=== PATIENT | female | born 1995 | race Caucasian/White ===

== ENCOUNTER → 2019-08-28 | Outpatient (CLI) | payer OTHER ==
--- NOTE | 2019-08-28 13:49 | REP ---
Obstetric sonography: History: Supervision of 42 weeks 3 days. growth study of well-being. Proteinuria and obesity. Findings: Scanning through the gravid uterus demonstrates a viable single intrauterine gestation in a transverse lie, head to the maternal left. motion is observed and heart rate is recorded at 125 beats per minute. An anterior grade 1 placenta is seen without evidence of previa. Amniotic fluid is subjectively normal. Closed cervical length is measured transabdominally at 5.0 cm. No extrauterine abnormalities observed. Exam quality is inhibited to some degree by maternal body habitus and position. No anomaly is seen. The following anatomic structures are identified today and felt to be unremarkable: cranium, choroid plexus, cavum, cerebellum and posterior fossa, diaphragm, left-sided stomach, abdominal wall cord insertion, three-vessel cord, kidneys, bladder. Biometry chart: BPD 7.7 cm = 31 weeks 0 days Head circumference 28.5 cm = 31 weeks 2 days Abdominal circumference 27.6 cm = 31 weeks 4 days Femur length 6.2 cm = 32 weeks 1 day Humeral length 5.5 cm = 32 weeks 0 days HC/AC ratio normal 1.03. Cephalic index normal 0.75. Estimated weight 1818 grams, 4 pounds 0 ounces, 30th percentile for 32 weeks 3 days. CARLOS normal 12.7 cm. S/D ratio normal 2.95. Impression: Viable single intrauterine gestation at 31 weeks 4 days by today's composite sonographic criteria. Expected gestational age estimate based on prior sonography is 32 weeks 3 days. ISA by prior sonography October 20, 2019. Appropriate interval growth. Electronically Signed by Kingsley Corey MD 08/28/2019 02:35 P
== END ==
LOC: M RAD 12:19
PROVIDERS: ATTEND Registered Nurse Maternal Newborn
DX: R80.9 Proteinuria, unspecified (principal)

== ENCOUNTER 2019-09-06 12:04 | Inpatient (IN) | payer OTHER ==
[2019-09-06] VITALS (22 sets, daily range): BP systolic 122–179; BP diastolic 60–102
[~2019-09-06] VITALS: Ht 165.1 cm; Wt 105.4 kg
[2019-09-06] MEDS ORDERED: PEPC40TA12 PO (12:37)
[2019-09-06] MEDS ORDERED: PREN1CHW6 PO (12:37)
[2019-09-06] MEDS ORDERED: MAGN1CAP PO (12:37)
[2019-09-06] MEDS ORDERED: MAPA500T2 PO (12:37)
[2019-09-06] MEDS ORDERED: CVS500CA5 PO (12:37)
[2019-09-06] MEDS ORDERED: OMEG1CAP16 PO (12:37)
[2019-09-06 13:43] LABS: CREATININE,RANDOM URINE 24.4 MG/DL; TOTAL PROTEIN,RANDOM URINE 25.2 MG/DL (0.0-12.0)
[2019-09-06 13:51] LABS: HEMATOCRIT 37.2 % (36.0-47.0); HEMOGLOBIN 12.5 g/dl (12.0-15.5); MEAN CORPUSCULAR HEMOGLOBIN 31.4 pg (27.0-33.0); MEAN CORPUSCULAR HGB CONC 33.6 g/dl (32.0-36.5); MEAN CORPUSCULAR VOLUME 93.5 fl (80.0-96.0); PLATELET COUNT, AUTOMATED 200 10^3/uL (150-450); RED BLOOD COUNT 3.98 10^6/uL (4.00-5.40); WHITE BLOOD COUNT 13.9 10^3/uL (4.0-10.0)
[2019-09-06] MEDS ORDERED: FIORICET TAB PO ONE (14:00)
[2019-09-06 14:08] LABS: ALT/SGPT 18 U/L (12-78); BILIRUBIN,TOTAL 0.3 MG/DL (0.2-1.0); CREATININE FOR GFR 0.79 MG/DL (0.55-1.30); GLOMERULAR FILTRATION RATE > 60.0 (>60); LDH LACTATE DEHYDROGENASE 208 U/L (84-246); URIC ACID 6.3 MG/DL (2.6-6.0)
[2019-09-06] MEDS ORDERED: BETAMETHASONE SOLUSPAN 6MG/ML INJ 5ML (J0702) IM ONE (15:30)
[2019-09-06] MEDS ORDERED: LABETALOL HCL 100 MG/20 ML VIAL IV ONE (15:30)
[2019-09-06] MEDS ORDERED: diphenhydrAMINE 25 MG CAP PO ONE (15:30)
[2019-09-06] MEDS ORDERED: MAGNESIUM *L&D* 4 GM/100 ML BAG (40MG/ML) (J3475) IV ONE (15:30)
[2019-09-06] MEDS ORDERED: LABETALOL HCL 100 MG/20 ML VIAL IV SCH (15:41)
[2019-09-06] MEDS: LR 1,000 ML IV SCH (15:51)
[2019-09-06] MEDS: MAG Sulf (OBGYN) 20GM/500ML 20,000 MG in IV 1 EA IV SCH (16:09)
[2019-09-06] MEDS ORDERED: PENICILLIN G POTASSIUM IV 5 MU in D5W MINI-BAG PLUS 100 ML IV ONE (16:45)
[2019-09-06] MEDS ORDERED: hydrOXYzine 10 MG TAB PO ONE (21:15)
[2019-09-06] MEDS ORDERED: ACETAMINOPHEN 500 MG TAB PO ONE (21:15)
[2019-09-06] MEDS: FAMOTIDINE 20 MG TAB PO SCH (21:19)
[2019-09-06] MEDS: PENICILLIN G POTASSIUM IV 2.5 MU in IV 1 EA IV SCH (21:21)
[2019-09-07] VITALS (55 sets, daily range): BP systolic 113–172; BP diastolic 61–102
[2019-09-07] MEDS: PENICILLIN G POTASSIUM IV 2.5 MU in IV 1 EA IV SCH ×4 (01:35→13:36)
[2019-09-07] MEDS: LR 1,000 ML IV SCH ×2 (04:30→16:17)
--- NOTE | 2019-09-07 06:25 | HPE ---
DATE OF ADMISSION: 09/06/2019 This lady is a 24-year-old, 6, para 2, abortio 3, last menstrual period (LMP) 01/13/2019, expected date of confinement (EDC) 10/20/2019 with a history of being 33 and 5 weeks of gestation who was in the office today and had an elevated blood pressure of 139/87 and 139/85, plus a migraine which she has had for 2 days and she was diagnosis as preeclampsia. PAST HISTORY: In May 2015, at 37 and 6 weeks, had a section after induction of labor which failed for preeclampsia with nonreassuring heart tones at 4 cm. The baby was 7 pounds 3 ounces. In October 2016, she had a repeat section at 40 weeks, scheduled, 7 pounds 15 ounces. She did not want to do induction of labor for preeclampsia. In 2018, had an ectopic . No details on the side or the operative procedure. In 2013, she had a spontaneous AB of twins with dilation and curettage. Her risk factors is that she had a history of preeclampsia x2. She has had two sections. She has had a right ectopic . Her body mass index (BMI) is 34.6 and she suffers from migraines. She had an ultrasound on 08/30/2019 which showed a viable intrauterine (IUP), vertex presenting, at 30 and weeks 1 day, with estimated weight at the 30th percentile with an CARLOS of normal and the cervix was 5.0. Presently, her hemoglobin is 12.5, hematocrit 37.2 and platelets are 200. Her uric acid was 6.3. Her ALT, AST and LDH were normal. Her protein creatinine ratio is 1.04. Her 24-hour urine that she did at [place] was 460. LAB WORK: O+. HIV negative. Hepatitis negative. RPR negative. Rubella immune. Varicella immune. Pap normal. GBS positive for urine. Gonorrhea and chlamydia negative. 1-hour glucose was 110. Her 28-week glucose was 112. Pap normal. EXAMINATION: Today, no acute distress. No eye grounds issues. Her migraine which she has had before requires some Fioricet for which we have given her and subsequently the migraines are resolving. She has no visual disturbances. No right upper quadrant pain. Reflexes are normal. No pedal edema. On examination presently, her symphysis fundus height is 32. She is in no distress. No contractions. Category one strip. No vaginal bleeding or discharge. Her reflexes as mentioned were normal. Eyegrounds were normal. Her blood pressure while in the hospital here range from 142/8 to 150/88 to 150/92. She had one episode of a severe range blood pressure of 179/102 without any consequence. Our plan of care is to IV keep vein open, magnesium sulfate for 24-hour prophylaxis, betamethasone which she had an initial dose of 12.5 mg and 12 hours later had some swelling in her face and flushing. We do not attribute it as a true allergy, however, we have given her Benadryl followed half an hour later by her betamethasone 12.5. We are prophylactically treating her for GBS with penicillin. We have her on a hypertensive protocol. If her blood pressure reaches severe range 160/100, we will initiate the IV antihypertensive protocol. We have spoken with neonatology who is aware that within 24 hours this lady will be delivered. The patient expressed understanding. All questions were answered. 1-hour discussion.
[2019-09-07 07:15] LABS: HEMATOCRIT 38.8 % (36.0-47.0); HEMOGLOBIN 13.2 g/dl (12.0-15.5); MEAN CORPUSCULAR HEMOGLOBIN 31.2 pg (27.0-33.0); MEAN CORPUSCULAR VOLUME 91.7 fl (80.0-96.0); PLATELET COUNT, AUTOMATED 259 10^3/uL (150-450); RED BLOOD COUNT 4.23 10^6/uL (4.00-5.40)
[2019-09-07 07:56] LABS: ALT/SGPT 16 U/L (12-78); BILIRUBIN,TOTAL 0.3 MG/DL (0.2-1.0); CREATININE FOR GFR 0.92 MG/DL (0.55-1.30); GLOMERULAR FILTRATION RATE > 60.0 (>60); LDH LACTATE DEHYDROGENASE 278 U/L (84-246); MAGNESIUM LEVEL 4.8 MG/DL (1.8-2.4)
[2019-09-07] MEDS: FAMOTIDINE 20 MG TAB PO SCH ×2 (09:38→21:37)
[2019-09-07] MEDS ORDERED: ACETAMINOPHEN 500 MG TAB PO ONE (10:00)
[2019-09-07] MEDS: MAG Sulf (OBGYN) 20GM/500ML 20,000 MG in IV 1 EA IV SCH (10:50)
--- NOTE | 2019-09-07 10:55 | IPNPDOC ---
Obstetrical Progress Note Date of Service Sep 07, 2019 Subjective Received report from Dr. Bhatti and assumed co-management of 24yo at 33+6wks who was admitted yesterday for Pre-Eclampsia with severe features. Her hospital admission course has included completion of 2nd betamethasone, magnesium sulfate, Fioricet and tylenol for her headache, Penicillin prophylaxis for GBS+ status; she has lopez catheter and SCDs in place. Whitney reports +FM, denies VB/CTX/LOF. She reports a 5/0 MCLEAN at time of her assessment. Her last tylenol was last night and she is amenable on trying another 1gm of tylenol at this time. She denies RUQ pain and visual disturbances. She is currently alone in her room because her spouse is at home with her two other small children at this time. Objective O: BP currently normotensive. Two severe range BPs noted at times of assessment and stimulus at 0726 and 1004; mild range at 0946. Afebrile, pulse WNL Lungs clear to auscultation Normal reflexes Mild pedal edema bilaterally FHR 115, minimal variability, some periods of moderate variability, positive accels, no decels noted CTX: none Labs: Platelets 259, mag level 4.8, LDH 278, uric acid 6.0 PC ratio 1.04 Urine output: 150-200ml/hr Vital Signs Date Time Temp Pulse Resp B/P (MAP) Pulse Ox O2 Delivery O2 Flow Rate FiO2 09/07/19 10:17 94 18 126/79 (95) 09/07/19 10:04 98.6 09/07/19 07:26 99 Room Air Item Value Date Time Creatinine 0.92 MG/DL 09/07/19 0631 Assessment Heart Rate Tracing: Category II Tocometer Contractions: No Assessment and Plan Status: Reassuring Group B Streptococcus: Positive Anticipate: Section Additional Comments A: 24yo at 33+6 weeks admitted for Pre-Eclampsia with severe features, currently on magnesium sulfate. Reassuring status, Category II FHT d/t minimal variability. VSS, few severe range BPs, otherwise normotensive. Lab stable at this time. Pt stable at this time. P: Continuous EFM x2 Close monitoring for s/sx of Pre-E Tylenol for MCLEAN Report provided to Dr. Farnsworth - current plan to conduct repeat C/S at 1630 today Will notify neonatolgy and anesthesia and update with plan for delivery Continue to monitor HIPOLITO JOHANSEN CNM Sep 07, 2019 10:46
--- NOTE | 2019-09-07 10:58 | IPN ---
DATE: 09/07/2019 This lady is a 24-year-old, 6, para 2, who is presently at 33 and 6 weeks of gestation. Was admitted through the office because of elevated blood pressures and also significant migraine, which she has had in the past. When she came in, she was worked up for pre-eclampsia and she was found to have a uric acid elevation of 6.3. Her protein-creatinine ratio was 1.04. She did have a 24-hour urine at [place], which just came back at 465. Her blood pressures earlier were anywhere in the low range of 135/85, 122/65, to 159/97 to 150/92. She had one severe range blood pressure on admission of 179/102; however, it was upsetting to her to be here at the present time. She overnighted with prophylactic penicillin because group B streptococcus (GBS) status is positive, magnesium sulfate for neuro prophylaxis, and betamethasone to make her complete. She did have apparently a reaction to betamethasone in her first dose in the office. However, here, we gave her Benadryl and then a half an hour later, she had her betamethasone and symptomatically she was well. We gave her some medication for sleep for her gastroesophageal reflux disease (GERD) and for her migraine. She just has a minimal headache this morning. We repeated her blood work this morning, and her hemoglobin this morning is 13.2, hematocrit 38.8, and platelets are 259. Her chemistry is still pending. Our plan of care was to make her neuro complete, which will be at 1600 hours this afternoon. The plan of management was that she would have a section as she has had two previous sections. One was for pre-eclampsia, and the second one was an elective repeat because she did not want to have induction of labor and she had pre-eclampsia symptoms in her second . Presently, she is afebrile. She is doing well. She has urinary output 150 mL/hour. Her immediate blood pressure right now is 128/80, respirations are 18, pulse 78, and her temperature is 99.0. Patient is understanding of the plan of care. We will discuss this with the oncoming physician. In summary, we have a 33 and 6 week gestation, previous section times two, previous history of pre-eclampsia times two, presently with midrange blood pressures treated. She did not have any antihypertensives, although she is on the antihypertensive protocol, and we will move forward regarding management of care after she is neuro complete. We discussed this with neonatology, who is on board.
[2019-09-07] MEDS ORDERED: ceFAZolin SOD 2 GM in IV 1 EA IV ONE (14:45)
[2019-09-07] MEDS ORDERED: BICITRA 30ML SOLN UDC PO ONE (14:45)
--- NOTE | 2019-09-07 16:50 | IPNPDOC ---
Text Note Date of Service The patient was seen on 09/07/19. NOTE Consent for /BTL Whitney is a 24yo with SIUP at 33w6d who was admitted yesterday for pre- eclampsia with severe features based on bp's, proteinuria and creatinine. She had a headache but resolved with medication. She was started on IV Mg and received 2nd dose of betamethasone yesterday at 1630. BPs have been mostly normotensive to mild range on Mg, rare and unrepeated severe range. No vision changes. No RUQ pain. Vitals: normotensive, afebrile General: WDWN, resting comfortably Abdomen: soft, gravid, NTTP Cat I FHRT with bl 120, +accels, -decels, mod eliu [place]: no ctx Labs significant for creat 0.92, recent 24hr UP >400mg, normal LFTs and plt 259 Assessment: Whitney is a 24yo with SIUP at 33w6d with pre-eclampsia with severe features based on bp's, proteinuria and creatinine, now 24hr steroid complete. Hx of 2 prior sections and satisfied parity. Reassuring status. Vitals and labs as noted above. Plan: -Consent form signed for RLTCS with BTL. All r/b/a discussed and consent forms signed by me and patient for surgery as well as blood transfusion -Anceph 2g IV pre-operatively -Bicitra -SCDs -Nursing team, anesthesia and NICU Dr all aware of plan -Will proceed to OR when team ready MD RICHY Castillo,Mac, I+O VSMac I+O Laboratory Tests 09/07/19 06:31 Vital Signs Date Time Temp Pulse Resp B/P (MAP) Pulse Ox O2 Delivery O2 Flow Rate FiO2 09/07/19 15:16 86 18 124/72 (89) 09/07/19 13:01 98.9 09/07/19 07:26 99 Room Air I&O- Last 24 Hours up to 6 AM 09/07/19 05:59 Intake Total 1375 ml Output Total 3400 ml Balance -5 ml Tavia Farnsworth MD Sep 07, 2019 16:50
[2019-09-07] MEDS ORDERED: KETOROLAC 60 MG/2 ML VIAL (J1885) As Ordered ONE (17:11)
[2019-09-07] MEDS ORDERED: MORPHINE PRES-FREE INJ 10 MG/10 ML VIAL (J2274) As Ordered ONE (17:11)
[2019-09-07] MEDS ORDERED: ONDANSETRON 4MG/2ML VIAL (J2405) As Ordered ONE (17:11)
[2019-09-07] MEDS ORDERED: OXYTOCIN INJ 10 UNITS/ML VIAL (J2590) As Ordered ONE (17:11)
[2019-09-07] MEDS ORDERED: NALOXONE INJ 0.4 MG/1 ML VIAL (J2310) IV PRN ×2 (17:27)
[2019-09-07] MEDS ORDERED: NALBUPHINE HCL 10 MG/ML AMP (J2300) IV PRN (17:27)
[2019-09-07] MEDS ORDERED: METOCLOPRAMIDE INJ 10MG/2ML VIAL (J2765) IV PRN ×2 (17:27→19:00)
[2019-09-07] MEDS ORDERED: diphenhydrAMINE INJ 50MG/ML VIAL (J1200) IV PRN (17:27)
[2019-09-07] MEDS ORDERED: ONDANSETRON 4MG/2ML VIAL (J2405) IV PRN ×2 (17:27→19:00)
[2019-09-07] MEDS ORDERED: miSOPROStol 200 MCG TAB (S0191) As Ordered ONE (17:57)
[2019-09-07 18:07] LABS: CORD GAS ABE A -7.5; CORD GAS HCO3 A 17.1 MEQ/L; CORD GAS O2 SAT A 23.5 %; CORD GAS PCO2 A 32.8 mmHg; CORD GAS PH A 7.335 UNITS; CORD GAS PO2 A 14.7 mmHg; CORD GAS SBC A 16.8 MEQ/L; CORD GAS TCO2 A 18.1 MEQ/L
[2019-09-07 18:08] LABS: CORD GAS ABE V -4.8; CORD GAS O2 SAT V 29.2 %; CORD GAS PCO2 V 36.5 mmHg; CORD GAS PH V 7.356 UNITS; CORD GAS PO2 V 15.7 mmHg; CORD GAS SBC V 18.9 MEQ/L; CORD GAS TCO2 V 21.1 MEQ/L
[2019-09-07] MEDS ORDERED: dexameTHASONE 4 MG/ML 1ML VIAL (J1100) As Ordered ONE (18:13)
[2019-09-07] MEDS ORDERED: miSOPROStol 200 MCG TAB (S0191) PR ONE (18:45)
[2019-09-07] MEDS ORDERED: PERCOCET 5MG/325MG TAB PO PRN ×3 (18:45→19:00)
[2019-09-07] MEDS ORDERED: MEASLES,MUMPS,RUBELLA VACCINE INJ (MMR-II) (90707) SC SCH (18:45)
[2019-09-07] MEDS ORDERED: RHOGAM 300 MCG (1500 IU) INJ (J2790) IM SCH (18:45)
--- NOTE | 2019-09-07 18:49 | DNPDOC ---
[facility] Delivery Note Delivery Note DATE OF DELIVERY: 09/07/2019 PREDELIVERY DIAGNOSIS: 33w6d having pre-eclampsia with severe features, history of 2 prior sections, satisfied parity POST DELIVERY DIAGNOSIS: same as above, delivered. PROCEDURE: RLTCS with bilateral tubal ligation WELDER TACK: Dr. Tavia Farnsworth MD ANESTHESIA: spinal ESTIMATED BLOOD LOSS: 500 mL. FINDINGS: 4 pound 1 ounce female , Score 8/9 DELIVERY SUMMARY: Whitney is a 24yo [id number] s/p uncomplicated RLTCS with BTL on 09/07/2019 at 1752 indicated for pre-eclampsia with severe features (based on bp's, pr oteinuria and elevated creatinine), having history of 2 prior sections and satisfied parity. MD Daja Castillo Katrina D MD Sep 07, 2019 18:49
[2019-09-07] MEDS ORDERED: LR 1,000 ML IV SCH (19:00)
[2019-09-07] MEDS ORDERED: fentaNYL 100 MCG/2 ML INJECTION (J3010) IV PRN (19:00)
[2019-09-07] MEDS ORDERED: OXYTOCIN DRIP 30 UNITS in IV 1 EA IV SCH (19:00)
[2019-09-07] MEDS ORDERED: MEPERIDINE INJ 25 MG/ML VIAL (J2175) IV PRN (19:00)
[2019-09-07] MEDS ORDERED: GASTROGRAFIN SOLUTION 30ML PO SCH (19:40)
[2019-09-07] MEDS ORDERED: OXYTOCIN 30 UNITS IN 0.9% NaCl 500ML IV BAG (J2590) As Ordered ONE (19:56)
[2019-09-07] MEDS ORDERED: fentaNYL 100 MCG/2 ML INJECTION (J3010) As Ordered ONE (20:07)
[2019-09-07] MEDS: DOCUSATE SODIUM 100 MG CAP PO SCH (21:37)
[2019-09-08] VITALS (20 sets, daily range): BP systolic 114–158; BP diastolic 70–96
[2019-09-08] MEDS: KETOROLAC 30 MG/ML VIAL (J1885) IV SCH ×3 (00:01→11:55)
[2019-09-08] MEDS: LR 1,000 ML IV SCH (00:03)
[2019-09-08] MEDS: MAG Sulf (OBGYN) 20GM/500ML 20,000 MG in IV 1 EA IV SCH (05:00)
[2019-09-08 06:33] LABS: HEMATOCRIT 32.4 % (36.0-47.0); MEAN CORPUSCULAR HEMOGLOBIN 31.2 pg (27.0-33.0); MEAN CORPUSCULAR HGB CONC 33.6 g/dl (32.0-36.5); MEAN CORPUSCULAR VOLUME 92.8 fl (80.0-96.0); PLATELET COUNT, AUTOMATED 222 10^3/uL (150-450); RED BLOOD COUNT 3.49 10^6/uL (4.00-5.40); WHITE BLOOD COUNT 18.3 10^3/uL (4.0-10.0)
[2019-09-08 06:43] LABS: HEMOGLOBIN 10.9 g/dl (12.0-15.5)
[2019-09-08 06:58] LABS: ALBUMIN 2.4 GM/DL (3.2-5.2); ALT/SGPT 14 U/L (12-78); BILIRUBIN,TOTAL 0.2 MG/DL (0.2-1.0); BLOOD UREA NITROGEN 14 MG/DL (7-18); CALCIUM LEVEL 6.7 MG/DL (8.5-10.1); CARBON DIOXIDE LEVEL 22 MEQ/L (21-32); CHLORIDE LEVEL 107 MEQ/L (98-107); GLOMERULAR FILTRATION RATE > 60.0 (>60); GLUCOSE, FASTING 111 MG/DL (70-100); POTASSIUM SERUM 4.5 MEQ/L (3.5-5.1); SODIUM LEVEL 137 MEQ/L (136-145); TOTAL PROTEIN 5.7 GM/DL (6.4-8.2)
[2019-09-08] MEDS: PRENATAL VITAMINS CHEWABLE TABLET PO SCH (08:05)
[2019-09-08] MEDS: DOCUSATE SODIUM 100 MG CAP PO SCH ×2 (08:05→19:22)
[2019-09-08] MEDS: FAMOTIDINE 20 MG TAB PO SCH ×2 (08:06→19:23)
--- NOTE | 2019-09-08 09:38 | IPNPDOC ---
Progress Note Date of Service: Sep 08, 2019 Day#: 1 Progress Note PPD 1/POD 1 SUBJECT: Whitney is a 24yo [id number] s/p uncomplicated RLTCS with BTL on 09/07/2019 at 1752 indicated for pre-eclampsia with severe features (based on bp's, proteinuria and elevated creatinine), having history of 2 prior sections and satisfied parity, doing well /post-op day # 1. She has no t yet ambulated since on MgSO4 for 24hr post-op, has lopez catheter in place and tolerating regular diet with no nausea/emesis. Breast pumping for baby in NICU- was able to see baby once so far. Reports lochia is minimal. No f/c/CP/SOB/MCLEAN/vision changes/RUQ pain. OBJECTIVE: VITAL SIGNS: BP's normotensive to slightly mild range, afebrile. Alert and oriented times three. Abdomen: Fundus firm at U-1. Soft, appropriately tender to palpation. Abdominal binder in place. Optifoam dressing covering pfannensteil incision with no erythema/induration noted Extremities: no pain with palpation of calves, SCDs in place UOP >100ml/hr Labs: pre-op H/H 13.2/38.8 post-op H/H 10.9/32.4 creatinine 0.9, AST/ALT wnl ASSESSMENT: Whitney is a 24yo [id number] s/p uncomplicated RLTCS with BTL on 09/07/2019 at 1752 indicated for pre-eclampsia with severe features (based on bp's, proteinuria and elevated creatinine), having history of 2 prior sections and satisfied parity, doing well /post-op day # 1. No s/sx of worsening pre-E. Vitals within normal limits (normal to mild range bp's), afeb rile, hemodynamically stable with no evidence of infection. PLAN: 1. Routine /post-op care on L&D until 24hr of MgSO4 completed post-op, then discontinue MgSO4 and remove lopez catheter, pt can go to [place]. Ok to shower tonight. 2. Toradol and percocet x24hr post-op then Motrin and percocet for pain. 3. Encourage breast pumping and visitation of baby in NICU (in wheelchair), bedrest while on MgSO4. Encourage use of IS. 4. Regular diet 5. CBC and CMP tomorrow morning Dr. Tavia Farnsworth MD VS, I&O, 24H, Fishbone Vital Signs/I&O Vital Signs Date Time Temp Pulse Resp B/P (MAP) Pulse Ox O2 Delivery O2 Flow Rate FiO2 09/08/19 08:59 74 18 136/92 (107) 09/08/19 07:12 98.6 09/08/19 06:02 98 Room Air I&O- Last 24 Hours up to 6 AM 09/08/19 06:00 Intake Total 3523.4 ml Output Total 5520 ml Balance -1996.6 ml Laboratory Data 24H LABS Laboratory Tests 2 09/07/19 17:59: Cord Arterial Blood pH 7.335, Cord Arterial Blood PCO2 32.8, Cord Arterial Blood PO2 14.7, Cord Arterial Blood HCO3 17.1, Cord Arterial Blood Total CO2 18.1, Cord Arterial Blood Base Excess -7.5, Cord Arterial Base Excess (Standard 16.8, Cord Arterial Bld Oxygen Saturation 23.5, Cord Venous Blood pH 7.356, Cord Venous Blood PCO2 36.5, Cord Venous Blood PO2 15.7, Cord Venous Blood HCO3 20.0, Cord Venous Blood Total CO2 21.1, Cord Venous Base Excess (Actual) -4.8, Cord Venous Base Excess (Standard) 18.9, Cord Venous Blood Oxygen Saturation 29.2 09/08/19 06:21: Nucleated Red Blood Cells % (auto) 0.0, Anion Gap 8, Glomerular Filtration Rate > 60.0, Calcium Level 6.7L, Total Bilirubin 0.2, Aspartate Amino Transf (AST/SGOT) 18, Alanine Aminotransferase (ALT/SGPT) 14, Alkaline Phosphatase 83, Total Protein 5.7L, Albumin 2.4L, Albumin/Globulin Ratio 0.73L CBC/BMP Laboratory Tests 09/08/19 06:21 Tavia Farnsworth MD Sep 08, 2019 09:38
[2019-09-08] MEDS: IBUPROFEN 800 MG TAB PO SCH (19:23)
[2019-09-09 02:00] VITALS: BP 142/80
[2019-09-09] MEDS: IBUPROFEN 800 MG TAB PO SCH ×2 (04:52→12:11)
[2019-09-09 05:54] VITALS: BP 139/74
[2019-09-09 06:58] LABS: HEMATOCRIT 30.9 % (36.0-47.0); HEMOGLOBIN 10.1 g/dl (12.0-15.5); MEAN CORPUSCULAR HEMOGLOBIN 31.3 pg (27.0-33.0); MEAN CORPUSCULAR HGB CONC 32.7 g/dl (32.0-36.5); MEAN CORPUSCULAR VOLUME 95.7 fl (80.0-96.0); PLATELET COUNT, AUTOMATED 169 10^3/uL (150-450); RED BLOOD COUNT 3.23 10^6/uL (4.00-5.40); WHITE BLOOD COUNT 9.4 10^3/uL (4.0-10.0)
[2019-09-09 07:31] LABS: ALBUMIN 2.2 GM/DL (3.2-5.2); ALT/SGPT 15 U/L (12-78); BILIRUBIN,TOTAL 0.1 MG/DL (0.2-1.0); BLOOD UREA NITROGEN 21 MG/DL (7-18); CARBON DIOXIDE LEVEL 26 MEQ/L (21-32); CHLORIDE LEVEL 108 MEQ/L (98-107); CREATININE FOR GFR 0.89 MG/DL (0.55-1.30); GLOMERULAR FILTRATION RATE > 60.0 (>60); GLUCOSE, FASTING 80 MG/DL (70-100); POTASSIUM SERUM 4.7 MEQ/L (3.5-5.1); SODIUM LEVEL 137 MEQ/L (136-145); TOTAL PROTEIN 5.8 GM/DL (6.4-8.2)
[2019-09-09] MEDS: DOCUSATE SODIUM 100 MG CAP PO SCH (07:44)
[2019-09-09] MEDS: PRENATAL VITAMINS CHEWABLE TABLET PO SCH (07:44)
[2019-09-09] MEDS: FAMOTIDINE 20 MG TAB PO SCH (07:44)
--- NOTE | 2019-09-09 12:06 | IPNPDOC ---
Progress Note Date of Service: Sep 09, 2019 Day#: 2 Progress Note PPD 2/POD 2 SUBJECT: Whitney is a 24yo [id number] s/p uncomplicated RLTCS with BTL on 09/07/2019 at 1752 indicated for pre-eclampsia with severe features (based on bp's, proteinuria and elevated creatinine), having history of 2 prior sections and satisfied parity, doing well /post-op day # 2. IV MgSO4 w as stopped last night when 24hr post-op. Gaitan catheter was removed and she has been voiding spontaneously without issue. Tolerating regular diet with no nausea/emesis. Breast pumping for baby in NICU- she has been visiting baby. Reports lochia is minimal. No f/c/CP/SOB/MCLEAN/vision changes/RUQ pain. OBJECTIVE: VITAL SIGNS: BP's normotensive to slightly mild range, afebrile. Alert and oriented times three. Abdomen: Fundus firm at U-1. Soft, appropriately tender to palpation. Abdominal binder in place. Optifoam dressing covering pfannensteil incision with no erythema/induration noted Extremities: no pain with palpation of calves Labs: pre-op H/H 13.2/38.8 post-op H/H 10.9/32.4 --> 10.1/30.9 creatinine 0.9 --> 0.89, AST/ALT wnl ASSESSMENT: Whitney is a 24yo [id number] s/p uncomplicated RLTCS with BTL on 09/07/2019 at 1752 indicated for pre-eclampsia with severe features (based on bp's, proteinuria and elevated creatinine), having history of 2 prior sections and satisfied parity, doing well /post-op day # 2. No s/sx of worsening pre-E. Vitals within normal limits (normal to mild range bp's), afebrile, hemodynamically stable with no evidence of infection. PLAN: 1. Discharge to home today 2. Percocet OR tylenol prn pain. Discontinuing motrin 3. Vaginal rest and no heavy lifting for 6 weeks. Remove optifoam/steri strips in 1 week. Keep incision clean and dry 4. Regular diet 5. Return precautions discussed 6. BP check in 3 days, next scheduled visit in [address] Tavia Farnsworth MD VS, I&O, 24H, [facility] Vital Signs/I&O Vital Signs Date Time Temp Pulse Resp B/P (MAP) Pulse Ox O2 Delivery O2 Flow Rate FiO2 09/09/19 08:31 17 Room Air 09/09/19 05:54 97.9 74 139/74 (95) 97 I&O- Last 24 Hours up to 6 AM 09/09/19 06:00 Intake Total 2212 ml Output Total 3650 ml Balance -1438 ml Laboratory Data 24H LABS Laboratory Tests 2 09/09/19 06:38: Nucleated Red Blood Cells % (auto) 0.0, Anion Gap 3L, Glomerular Filtration Rate > 60.0, Calcium Level 8.0#L, Total Bilirubin 0.1L, Aspartate Amino Transf (AST/SGOT) 21, Alanine Aminotransferase (ALT/SGPT) 15, Alkaline Phosphatase 69, Total Protein 5.8L, Albumin 2.2L, Albumin/Globulin Ratio 0.61L CBC/BMP Laboratory Tests 09/09/19 06:38 Tavia Farnsworth MD Sep 09, 2019 12:04
[2019-09-09] MEDS ORDERED: PERCOCET PO (12:08)
[2019-09-09] MEDS ORDERED: DOCU100C16 PO (12:08)
--- NOTE | 2019-09-09 12:12 | DS.PDOC ---
Discharge Summary General Date of Admission Sep 06, 2019 at 15:05 Date of Discharge Sep 09, 2019 Attending Physician: Tavia Farnsworth MD Discharge Summary PROCEDURES PERFORMED DURING STAY: repeat low transverse section and bilateral tubal ligation ADMITTING DIAGNOSES: 1. pre-eclampsia with severe features 2. history of 2 prior sections 3. satisfied parity DISCHARGE DIAGNOSES: same as above, delivered COMPLICATIONS/CHIEF COMPLAINT: 33 Week Pre E. HISTORY OF PRESENT ILLNESS/HOSPITAL COURSE: Whitney is a 24yo [id number] s/p uncomplicated RLTCS with BTL on 09/07/2019 at 1752 indicated for pre-eclampsia with severe features (based on bp's, proteinuria and elevated creatinine), having history of 2 prior sections and satisfied parity, doing well /post-op day # 2. At time of discharge, she had no s/sx of worsening pre-E. Vitals were within normal limits (normal to mild range bp's), she was afebrile, hemodynamically stable with no evidence of infection. Baby to remain in NICU for prematurity, but patient would like discharge to be with her other children and will travel back and forth. DISCHARGE MEDICATIONS: Please see below. ALLERGIES: Please see below. PHYSICAL EXAMINATION ON DISCHARGE: VITAL SIGNS: BP's normotensive to slightly mild range, afebrile. Alert and oriented times three. Abdomen: Fundus firm at U-1. Soft, appropriately tender to palpation. Abdominal binder in place. Optifoam dressing covering pfannensteil incision with no erythema/induration noted Extremities: no pain with palpation of calves LABORATORY DATA: Please see below. DIET: regular DISPOSITION: home DISCHARGE PLAN/INSTRUCTIONS: 1. Discharge to home today 2. Percocet OR tylenol prn pain. Discontinuing motrin 3. Vaginal rest and no heavy lifting for 6 weeks. Remove optifoam/steri strips in 1 week. Keep incision clean and dry 4. Regular diet 5. Return precautions discussed 6. BP check in 3 days, next scheduled visit in 2 weeks DISCHARGE CONDITION: Stable TIME SPENT ON DISCHARGE: Greater than [address] Tavia Farnsworth MD Vital Signs/I&Os Vital Signs Date Time Temp Pulse Resp B/P (MAP) Pulse Ox O2 Delivery O2 Flow Rate FiO2 09/09/19 08:31 17 Room Air 09/09/19 05:54 97.9 74 139/74 (95) 97 I&O- Last 24 Hours up to 6 AM 09/09/19 06:00 Intake Total 2212 ml Output Total 3650 ml Balance -1438 ml Laboratory Data Labs 24H Laboratory Tests 2 09/09/19 06:38: Nucleated Red Blood Cells % (auto) 0.0, Anion Gap 3L, Glomerular Filtration Rate > 60.0, Calcium Level 8.0#L, Total Bilirubin 0.1L, Aspartate Amino Transf (AST/SGOT) 21, Alanine Aminotransferase (ALT/SGPT) 15, Alkaline Phosphatase 69, Total Protein 5.8L, Albumin 2.2L, Albumin/Globulin Ratio 0.61L CBC/BMP Laboratory Tests 09/09/19 06:38 Discharge Medications Scheduled Cranberry Fruit Extract (Cranberry) 500 Mg Capsule, 500 MG PO BID, (Reported) Docusate Sodium (Docusate Sodium) 100 Mg Capsule, 100 MG PO BID Famotidine (Pepcid) 40 Mg Tablet, 40 MG PO BID, (Reported) Magnesium Oxide (Magnesium) 500 Mg Capsule, 570 MG PO DAILY for constipation, (Reported) Haddock-3/Dha/Epa/Fish Oil (Haddock 3 500 Softgel) 1 Each Capsule, 1 CAP PO DAILY, (Reported) Vit37/Iron/Folic Acid ([place] Chewable Tablet) 1 Each Tab.chew, 1 TAB PO DAILY, (Reported) Scheduled PRN Oxycodone/Acetaminophen (Oxycodone-Acetaminophen 5-325) 1 Each Tablet, 2 TAB PO Q6H PRN for SEVERE PAIN (PS 8-10) Miscellaneous Medications Acetaminophen (Mapap) 500 Mg Tablet, 1,000 MG PO, (Reported) Allergies Coded Allergies: codeine (Verified Adverse Reaction, Mild, vomiting , 09/06/19) Tavia Farnsworth MD Sep 09, 2019 12:12
--- NOTE | 2019-09-10 08:00 | RO ---
DATE OF PROCEDURE: 09/07/2019 INDICATIONS FOR OPERATION Whitney is a 24-year-old G6, now P2-1-3-3, who was discovered to have preeclampsia with severe features based on elevated blood pressures to the severe range with elevated creatinine and proteinuria. 24-hour urine protein was greater than 400 mg. She received betamethasone and when she was 24 hours steroid complete at 33 weeks 6 days, she was counseled for a repeat low transverse section since she had a history of two prior sections. Also she had satisfied parity, and she was counseled for a bilateral tubal ligation. PREOPERATIVE DIAGNOSES 1. Allen intrauterine at 33 weeks 6 days with preeclampsia having severe features. 2. History of two prior sections. 3. Satisfied parity. POSTOPERATIVE DIAGNOSES: 1. Allen intrauterine at 33 weeks 6 days with preeclampsia having severe features. 2. History of two prior sections. 3. Satisfied parity. MATERIAL FORWARDED TO THE LAB FOR EXAMINATION: 1. Placenta and umbilical cord. 2. Portions of bilateral fallopian tubes. 3. Cord gases, which were pH arterial 7.335, base excess negative 7.5. pH venous 7.356, base excess negative 4.8 DESCRIPTION OF FINDINGS: Female in OA position. scores of eight and nine. Weight 1854 grams or 4 pounds 1 ounce. Normal appearing uterus, other than the obvious scarring of the bladder up to the uterus, normal bilateral ovaries and fallopian tubes. INFECTION CLASSIFICATION: II SURGEON: Tavia Farnsworth MD GENERAL MANAGER: ANESTHESIA: Spinal. ESTIMATED BLOOD LOSS: 500 mL URINE OUTPUT: 200 mL. IV fluids 1300 mL of lactated Ringer's. OPERATION PERFORMED: Repeat low transverse section with bilateral tubal ligation. DESCRIPTION OF OPERATION: The patient was taken to the operating room. She had a reassuring heart rate tracing prior. Spinal anesthesia was administered. Gaitan catheter and bilateral sequential compression devices were placed. She received 2 grams of IV Ancef prophylactically, as well as Bicitra. She was prepped and draped in normally sterile fashion in the dorsal supine position with a left lateral tilt. Time-out was performed to confirm patient name, date of , procedure and indication. The team was in agreement. intensive care unit (NICU) physician, Dr. Maravilla, was present. Spinal anesthesia was found to be adequate using an Allis clamp. Pfannenstiel skin incision was made with the scalpel and carried through to the underlying layer of fascia. Fascia was incised in the midline and the incision was extended laterally with Najera scissors. Superior and inferior aspects of the fascial incision were grasped with Jessie clamps, elevated and the underlying rectus muscles were dissected off bluntly and sharply. Peritoneum was entered digitally and the rectus muscles were in the midline. This peritoneal incision was extended superiorly and inferiorly with good visualization of the bladder. Bladder blade was inserted and the vesicouterine peritoneum was identified, grasped with pickups and entered sharply with Metzenbaum scissors. Incision was extended laterally and a bladder flap was created digitally. Mobius self-retaining retractor was placed prior to the bladder flap. The lower uterine segment was scored in a transverse fashion with a scalpel. Uterus was entered bluntly and the incision was extended with traction with clear amniotic fluid noted. There was an anterior placenta. The 's head was elevated to the level of the incision. Fundal pressure was applied and the head was delivered atraumatically in OA position. Anterior shoulder, posterior shoulder and corpus were delivered without difficulty. Nose and mouth were suctioned with bulb suction. Cord was clamped times two and cut. Infant was handed off to the awaiting team. Cord gases were obtained and as noted above. Placenta was removed manually and the uterus was exteriorized and cleared of all clot and debris. Uterine incision was repaired with 0 Vicryl suture in a running locking fashion. A second layer of 0 Monocryl was used to close the hysterotomy incision in an imbricating fashion. Uterine incision was inspected and hemostasis was noted. At this time, right and left fallopian tubes were visualized without abnormalities. A [place] tubal ligation was performed on the right followed by left fallopian tube using 0 plain gut suture. Transected portions of the fallopian tubes were sent to pathology. Posterior cul-de-sac was irrigated and the uterus returned to the abdomen. Gutters were cleared of all clot and irrigated with hemostasis noted. The Mobius self-retaining retractor was removed. Peritoneum was closed using 3-0 Vicryl suture in a running fashion. Rectus muscles needed no suturing. Fascia was reapproximated with 0 Vicryl suture in a running fashion. Subcutaneous tissue was copiously irrigated. Lenin fascia was reapproximated using 3-0 Vicryl suture in a running fashion. Skin edges were reapproximated using three inverted interrupted stitches using 3-0 Vicryl suture followed by a running subcuticular stitch using 4-0 Monocryl suture. Incision was cleaned using a wet lap, dried with a dry lap. Steri-Strips were applied in usual fashion. Optifoam dressing was then layered on top. Vagina was cleared of all blood clot without active bleeding noted. Fundus was firm at U minus one. All counts were correct times two. I placed 800 mcg of Cytotec rectally for prophylaxis against future bleeding since the patient will be on magnesium for 24 hours for her severe preeclampsia. Procedure was without complications. The patient tolerated the procedure well. She was taken to recovery room on labor and delivery in stable condition.
== END 2019-09-09 14:30 | disposition home or self-care (01) | DRG 785 ==
LOC: M LDO 12:04 → M LDI 15:05 → M OBS 09-08 18:20
PROVIDERS: ADMIT Obstetrics & Gynecology; ATTEND Obstetrics & Gynecology
PROC: 0UB70ZZ Excision of Bilateral Fallopian Tubes, Open Approach (ICD-10-PCS; 2019-09-07)
PROC: 10D00Z1 Extraction of Products of Conception, Low, Open Approach (ICD-10-PCS; principal; 2019-09-07 17:20)
DX: O14.14 Severe pre-eclampsia complicating childbirth (principal); Z37.0 Single live birth; Z3A.33 33 weeks gestation of pregnancy; O34.211 Maternal care for low transverse scar from previous cesarean delivery; Z30.2 Encounter for sterilization; O99.824 Streptococcus B carrier state complicating childbirth